=== PATIENT | male | born 1955 | race Caucasian/White ===

== ENCOUNTER 2016-09-09 21:56 | Inpatient (IN) | payer OTHER ==
[~2016-09-09] VITALS: Ht 175.3 cm; Wt 83.0 kg
[~2016-09-09 21:56] MED LIST: ACETAMINOPHEN500 MG PO; ACID CONTROL20 MG PO; ADVAIR 250/501 DISK IH; ADVAIR 500/501 DISK IH; AERONEB GO NEB1 EACH MC; AGGRENOX1 CAPSULE PO; ALENDRONATE SOD70 MG PO; ALIGN4 MG PO; AMITIZA24 MICROGR PO; AMLODIPINE BESY10 MG PO; ANALGESIC325 M1 PO; ASPIR-LOW81 MG PO; ASPIRIN81 M2 PO; ATORVASTATIN CA40 MG PO; AZITHROMYCIN500 M1 PO; BENADRYL25 MG PO; BRILINTA90 MG PO; BUPROPION HCL150 M1 PO; CARAFATE1 GM PO; CLONAZEPAM0.5 MG PO; CLOPIDOGREL75 MG PO; COMBIVENT RESPIM4 GM IH; DAILY VALUE1 EACH PO; DELTASONE20 M1 PO; DICYCLOMINE HCL10 MG PO; DONNATAL1 TABLET PO; DOXYCYCLINE HY100 MG PO; DUONEB 2.5-0.5 M3 ML AEROSOL; DUONEB 2.5-0.5 M3 ML IH; ELAVIL10 MG PO; ELIQUIS5 MG PO; FLAGYL500 MG PO; FLONASE ALLERG9.9 ML BOTH NARES; FLONASE16 G1 BOTH NARES; FOLIC ACID1 MG PO; FOSAMAX70 MG PO; GAS RELIEF125 MG PO; HYDROCHLOROTHIA25 MG PO; IMIPRAMINE HCL25 MG PO; KEFLEX500 MG PO; KENALOG,ARISTOC15 G3 TP; LEVAQUIN500 MG PO; LEVAQUIN750 MG PO; LEVOFLOXACIN500 MG PO; LIPITOR40 MG PO; LISINOPRIL2.5 MG PO; LO-DOSE ASPIRIN81 M1 PO; MELOXICAM15 MG PO; METOPROLOL SUC100 MG PO; METOPROLOL SUCC25 MG PO; METOPROLOL SUCC50 MG PO; METRONIDAZOLE500 MG PO; MIRALAX17 GM PO; MIRALAX255 GM PO; MONTELUKAST SOD10 MG PO; MORPHINE SULFAT15 MG PO; MULTIVITAMIN1 EAC2 PO; NITROSTAT0.4 MG SL; NORCO 5/3251 TABLET PO; NORVASC5 MG PO; ONE DAILY FOR1 EAC2 PO; OXAYDO5 MG PO; PANTOPRAZOLE SO40 MG PO; PERCOCET 5/31 TABLET PO; PHENERGAN-CODE120 ML PO; PLAVIX75 MG PO; PREDNISONE10 M1 PO; PREDNISONE10 MG PO; PREDNISONE20 MG PO; PREDNISONE5 MG PO; PREDNISONE50 MG PO; PROAIR HFA8.5 GM IH; PROTONIX40 MG PO; PROVENTIL,2.5 MG/0.5 AEROSOL; PROVENTIL,2.5 MG/3 M IH; SALINE NASAL SP45 ML BOTH NARES; SIMETHICONE125 M1 PO; SODIUM CHLORIDE1 G1 PO; SPIRIVA1 INHALATI IH; SUCRALFATE1 GM PO; THIAMINE HCL50 MG PO; TOPROL XL100 MG PO; TOPROL XL50 MG PO; TRAMADOL HCL50 MG PO; TYLENOL REGULA325 MG PO; ULTRAM50 MG PO; VITAMIN D-32000 UNI2 PO; VITAMIN D2000 UNI1 PO; ZITHROMAX Z-PA250 MG PO; ZITHROMAX500 MG PO; [UNRECOGNIZED DRUG - OTHER] PO
[2016-09-09 22:25] LABS: HEMATOCRIT 40.5 % (38.0-50.0); MCH 32.6 PG (29.0-34.0); MCHC 33.8 G/DL (30.0-36.0); MCV 96.4 FL (86-99); MEAN PLAT.VOLUME 8.6 uM^3 (9.0-12.4); RBC DIS.WIDTH-CV 12.8 % (11.8-14.6); RBC DIS.WIDTH-SD 45.4 % (39-53)
[2016-09-09 22:44] LABS: CHLORIDE 102 mEq/L (99-109); POTASSIUM 3.6 mEq/L (3.7-5.4); SODIUM 136 mEq/L (136-147)
[2016-09-09 22:45] LABS: GLUCOSE 82 mg/dL (70-99)
[2016-09-09 22:47] LABS: ANION GAP 13 MEQ/L (2-14)
[2016-09-09 22:49] LABS: GFR ESTIMATE (CALCULATED) > 59 mL/min/
[2016-09-09 22:50] LABS: UREA NITROGEN (BUN) 7 mg/dL (9-23)
[2016-09-09 23:29] LABS: TOTAL BILIRUBIN 0.3 mg/dL (0.0-1.0)
[2016-09-09 23:30] LABS: ALKALINE PHOSPHATASE 48 IU/L (3-129)
[2016-09-09 23:33] LABS: DIRECT BILIRUBIN 0.1 mg/dL (0.0-0.3)
[2016-09-09 23:34] LABS: LIPASE 30 U/L (1.0-51.0)
[2016-09-09 23:36] LABS: TROP-I INTERPRETATION NEGATIVE; TROPONIN-I < 0.01 ng/mL (0.0-0.30)
[2016-09-10 00:02] LABS: PLATELET COUNT ND K/uL (156-360)
[2016-09-10] MEDS ORDERED: OXAYDO7.5 MG PO (00:33)
[2016-09-10] MEDS ORDERED: PREDNISONE5 MG PO (00:35)
[2016-09-10] MEDS ORDERED: VITAMIN D31000 UNIT PO (00:35)
[2016-09-10] MEDS ORDERED: LINZESS290 MCG PO (00:36)
[2016-09-10] MEDS ORDERED: B COMPLETE1 EACH PO (00:37)
[2016-09-10] MEDS ORDERED: CO Q-1010 MG PO (00:37)
[2016-09-10] MEDS ORDERED: VITAMIN E100 UNIT PO (00:37)
[2016-09-10] MEDS ORDERED: MS CONTIN,ORAMO15 M1 PO (00:37)
[2016-09-10 04:53] VITALS: BP 154/85
[2016-09-10 07:49] VITALS: BP 159/100
[2016-09-10 09:26] LABS: MCH 31.7 PG (29.0-34.0); MCHC 33.1 G/DL (30.0-36.0); MCV 95.8 FL (86-99); MEAN PLAT.VOLUME 8.6 uM^3 (9.0-12.4); RBC DIS.WIDTH-SD 45.5 % (39-53); RED BLOOD COUNT 4.07 M/uL (4.00-5.50)
[2016-09-10 09:58] LABS: ANION GAP 8 MEQ/L (2-14); CHLORIDE 100 MEQ/L (99-109); GFR ESTIMATE (CALCULATED) > 59 mL/min/; POTASSIUM 4.2 MEQ/L (3.7-5.4); SAMPLE HEMOLYSIS CHECK 0; SAMPLE ICTERIC CHECK 0; SAMPLE LIPEMIA CHECK 0; SODIUM 136 MEQ/L (136-147); UREA NITROGEN (BUN) 8 mg/dL (9-23)
[2016-09-10 10:00] LABS: GLUCOSE 129 mg/dL (70-99)
[2016-09-10 10:03] LABS: ADD MIUA? NO; BILIRUBIN NEGATIVE; BLOOD NEGATIVE; COLOR YELLOW ((YELLOW)); GLUCOSE (STRIP) 50; KETONES NEGATIVE; LEUKOCYTES NEGATIVE; NITRITE NEGATIVE; PROTEIN (STRIP) NEGATIVE; SPECIFIC GRAVITY 1.013 (1.000-1.030); UCUL ADDED? NO; UROBILINOGEN 0.2 MG/DL (0.2-1.0)
[2016-09-10 10:31] LABS: PLATELET COUNT 256 K/uL (156-360)
[2016-09-10 12:07] VITALS: BP 125/84
[2016-09-10 15:47] VITALS: BP 124/78
[2016-09-10 20:57] VITALS: BP 138/96
[2016-09-11] VITALS (8 sets, daily range): BP systolic 113–145; BP diastolic 74–90
[2016-09-11 06:49] LABS: HEMATOCRIT 38.4 % (38.0-50.0); MCH 32.2 PG (29.0-34.0); MCHC 33.3 G/DL (30.0-36.0); MCV 96.5 FL (86-99); MEAN PLAT.VOLUME 8.7 uM^3 (9.0-12.4); PLATELET COUNT 247 K/uL (156-360); RBC DIS.WIDTH-CV 12.7 % (11.8-14.6); RBC DIS.WIDTH-SD 45.1 % (39-53); RED BLOOD COUNT 3.98 M/uL (4.00-5.50)
[2016-09-11 06:51] LABS: WHITE BLOOD COUNT 12.4 K/uL (4.1-10.2)
[2016-09-11 08:18] LABS: ANION GAP 5 MEQ/L (2-14); CHLORIDE 99 MEQ/L (99-109); GFR ESTIMATE (CALCULATED) > 59 mL/min/; GLUCOSE 126 mg/dL (70-99); POTASSIUM 3.9 MEQ/L (3.7-5.4); SAMPLE HEMOLYSIS CHECK 0; SAMPLE ICTERIC CHECK 0; SAMPLE LIPEMIA CHECK 0; SODIUM 135 MEQ/L (136-147); UREA NITROGEN (BUN) 7 mg/dL (9-23)
[2016-09-12 04:51] VITALS: BP 135/80
[2016-09-12 08:00] VITALS: BP 154/78
[2016-09-12 09:34] LABS: BASE EXCESS 5.6 mEq/L (-3 to +3); BICARBONATE 29.8 mEq/L (22-26); CARBOXY HGB 2.4 % (0-5); METHEMOGLOBIN 1.5 % (0-1.5); PCO2 41 mm Hg (35-45); PO2 61 mm Hg (80-100); pH 7.47 (7.35-7.45)
[2016-09-12 09:35] LABS: COMMENTS - BLOOD GASES A+C+; DEVICE NC; O2 FLOW 2 L/MIN; SITE LR; TOTAL RESP RATE 18 resp/min
[2016-09-12 12:18] VITALS: BP 148/80
[2016-09-12 15:45] VITALS: BP 120/77
[2016-09-12 18:16] VITALS: BP 166/96
[2016-09-12 20:48] VITALS: BP 149/91
[2016-09-13 01:03] VITALS: BP 139/83
[2016-09-13 05:00] VITALS: BP 154/77
[2016-09-13 06:09] LABS: EOSINOPHIL (%) 0 % (0-5); HEMATOCRIT 38.5 % (38.0-50.0); IMMATURE GRANULOCYTE (%) 0.7 % (0.0-0.7); IMMATURE GRANULOCYTE COUNT 0.1 K/uL; INSTRUMENT ABS NEUTROPHIL CT 10.4 K/uL; LYMPHOCYTE COUNT 0.9 K/uL (1.0-2.8); MCH 31.9 PG (29.0-34.0); MCHC 32.2 G/DL (30.0-36.0); MEAN PLAT.VOLUME 8.6 uM^3 (9.0-12.4); MONOCYTE COUNT 1.4 K/uL (0-0.8); NEUTROPHIL COUNT 10.4 K/uL (1.8-6.4); PLATELET COUNT 254 K/uL (156-360); RBC DIS.WIDTH-CV 12.7 % (11.8-14.6); RBC DIS.WIDTH-SD 45.9 % (39-53); RED BLOOD COUNT 3.89 M/uL (4.00-5.50); WHITE BLOOD COUNT 12.9 K/uL (4.1-10.2)
[2016-09-13 06:40] LABS: ANION GAP 7 MEQ/L (2-14); CHLORIDE 100 MEQ/L (99-109); GFR ESTIMATE (CALCULATED) > 59 mL/min/; MAGNESIUM 2.1 mg/dl (1.3-2.7); POTASSIUM 4.1 MEQ/L (3.7-5.4); SAMPLE HEMOLYSIS CHECK 0; SAMPLE ICTERIC CHECK 0; SAMPLE LIPEMIA CHECK 0; SODIUM 136 MEQ/L (136-147); UREA NITROGEN (BUN) 13 mg/dL (9-23)
[2016-09-13 06:42] LABS: GLUCOSE 85 mg/dL (70-99)
[2016-09-13 07:50] VITALS: BP 164/69
[2016-09-13 11:43] VITALS: BP 131/86
[2016-09-13 15:50] VITALS: BP 107/81
[2016-09-13 20:20] VITALS: BP 121/83
[2016-09-14] VITALS (7 sets, daily range): BP systolic 94–160; BP diastolic 68–98
[2016-09-14 06:59] LABS: EOSINOPHIL (%) 0 % (0-5); HEMATOCRIT 39.9 % (38.0-50.0); IMMATURE GRANULOCYTE (%) 1.1 % (0.0-0.7); IMMATURE GRANULOCYTE COUNT 0.1 K/uL; INSTRUMENT ABS NEUTROPHIL CT 8.6 K/uL; LYMPHOCYTE COUNT 0.5 K/uL (1.0-2.8); MCH 32.2 PG (29.0-34.0); MCHC 33.1 G/DL (30.0-36.0); MCV 97.3 FL (86-99); MEAN PLAT.VOLUME 8.8 uM^3 (9.0-12.4); MONOCYTE (%) 8.9 % (3-12); MONOCYTE COUNT 0.9 K/uL (0-0.8); NEUTROPHIL (%) 85.4 % (45-76); NEUTROPHIL COUNT 8.6 K/uL (1.8-6.4); PLATELET COUNT 239 K/uL (156-360); RBC DIS.WIDTH-CV 12.4 % (11.8-14.6); RBC DIS.WIDTH-SD 44.6 % (39-53); WHITE BLOOD COUNT 10.1 K/uL (4.1-10.2)
[2016-09-14 07:24] LABS: ANION GAP 6 MEQ/L (2-14); CHLORIDE 97 MEQ/L (99-109); GFR ESTIMATE (CALCULATED) > 59 mL/min/; GLUCOSE 103 mg/dL (70-99); POTASSIUM 4.4 MEQ/L (3.7-5.4); SAMPLE HEMOLYSIS CHECK 0; SAMPLE ICTERIC CHECK 0; SAMPLE LIPEMIA CHECK 0; SODIUM 133 MEQ/L (136-147); UREA NITROGEN (BUN) 14 mg/dL (9-23)
[2016-09-15 04:00] VITALS: BP 128/73
[2016-09-15 06:15] LABS: EOSINOPHIL (%) 0 % (0-5); HEMATOCRIT 41.2 % (38.0-50.0); IMMATURE GRANULOCYTE (%) 1.1 % (0.0-0.7); IMMATURE GRANULOCYTE COUNT 0.1 K/uL; INSTRUMENT ABS NEUTROPHIL CT 10.5 K/uL; LYMPHOCYTE COUNT 0.4 K/uL (1.0-2.8); MCH 32.1 PG (29.0-34.0); MCV 97.2 FL (86-99); MEAN PLAT.VOLUME 8.6 uM^3 (9.0-12.4); MONOCYTE (%) 7.4 % (3-12); MONOCYTE COUNT 0.9 K/uL (0-0.8); NEUTROPHIL (%) 87.6 % (45-76); NEUTROPHIL COUNT 10.5 K/uL (1.8-6.4); PLATELET COUNT 277 K/uL (156-360); RBC DIS.WIDTH-CV 12.4 % (11.8-14.6); RBC DIS.WIDTH-SD 44.6 % (39-53); RED BLOOD COUNT 4.24 M/uL (4.00-5.50); WHITE BLOOD COUNT 11.9 K/uL (4.1-10.2)
[2016-09-15 06:43] LABS: ANION GAP 8 MEQ/L (2-14); CHLORIDE 98 MEQ/L (99-109); GFR ESTIMATE (CALCULATED) > 59 mL/min/; GLUCOSE 98 mg/dL (70-99); POTASSIUM 4.4 MEQ/L (3.7-5.4); SAMPLE HEMOLYSIS CHECK 0; SAMPLE ICTERIC CHECK 0; SAMPLE LIPEMIA CHECK 0; SODIUM 135 MEQ/L (136-147); UREA NITROGEN (BUN) 16 mg/dL (9-23)
[2016-09-15 08:13] VITALS: BP 148/83
[2016-09-15 11:56] VITALS: BP 127/76
[2016-09-15 15:41] VITALS: BP 119/74
[2016-09-15 20:00] VITALS: BP 126/81
[2016-09-16 01:04] VITALS: BP 154/76
[2016-09-16 05:02] VITALS: BP 145/74
[2016-09-16 08:39] VITALS: BP 170/95
[2016-09-16 12:17] VITALS: BP 112/57
[2016-09-16 12:22] VITALS: BP 106/68
[2016-09-16] MEDS ORDERED: OMEPRAZOLE20 MG PO (13:43)
[2016-09-16] MEDS ORDERED: LEVOFLOXACIN750 MG PO (15:34)
[2016-09-16] MEDS ORDERED: NICOTINE PATCH1 EAC1 TD (15:35)
[2016-09-16 15:53] VITALS: BP 132/78
[2016-09-16] MEDS ORDERED: PROTONIX40 MG PO (16:20)
== END 2016-09-16 16:40 | disposition home health service (06) | DRG 190 ==
LOC: EME 21:56 → EDOF 09-10 02:57 → 5WEST 09-10 04:21 → 4SOUTH 09-10 12:21 → 5WEST 09-10 12:21 → 4SOUTH 09-12 18:00
PROVIDERS: Hospitalist; Internal Medicine; Physician Assistant; Student in an Organized Health Care Education/Training Program
DX: J44.1 Chronic obstructive pulmonary disease with (acute) exacerbation (principal); J96.00 Acute respiratory failure, unspecified whether with hypoxia or hypercapnia; E87.1 Hypo-osmolality and hyponatremia; K56.60 Unspecified intestinal obstruction; I25.10 Atherosclerotic heart disease of native coronary artery without angina pectoris; Z95.5 Presence of coronary angioplasty implant and graft; F17.210 Nicotine dependence, cigarettes, uncomplicated; I10 Essential (primary) hypertension; E78.5 Hyperlipidemia, unspecified; I48.0 Paroxysmal atrial fibrillation; Z86.73 Personal history of transient ischemic attack (TIA), and cerebral infarction without residual deficits; E66.9 Obesity, unspecified; Z68.27 Body mass index [BMI] 27.0-27.9, adult; G47.33 Obstructive sleep apnea (adult) (pediatric); F10.20 Alcohol dependence, uncomplicated
CPT/HCPCS: 36600; 71010; 71020; 74020; 80048; 80076; 81003; 82803; 83690; 83735; 83880; 84484; 85025; 85027; 85379; 87070; 87205; 93005; 94640; 94640 76; 94760; 94799; 99202; 99281; 99285; J2920; J2930; J7512

== ENCOUNTER 2016-12-12 08:57 | Emergency (ER) | payer OTHER ==
[~2016-12-12] VITALS: Ht 175.3 cm; Wt 89.3 kg
[~2016-12-12 08:57] MED LIST changes: +B COMPLETE1 EACH PO; +CO Q-1010 MG PO; +LEVOFLOXACIN750 MG PO; +LINZESS290 MCG PO; +MS CONTIN,ORAMO15 M1 PO; +NICOTINE PATCH1 EAC1 TD; +OMEPRAZOLE20 MG PO; +OXAYDO7.5 MG PO; +VITAMIN D31000 UNIT PO; +VITAMIN E100 UNIT PO
[2016-12-12 10:39] LABS: EOSINOPHIL (%) 0.2 % (0-5); HEMATOCRIT 38.3 % (38.0-50.0); IMMATURE GRANULOCYTE (%) 1.2 % (0.0-0.7); IMMATURE GRANULOCYTE COUNT 0.2 K/uL; INSTRUMENT ABS NEUTROPHIL CT 11.9 K/uL; LYMPHOCYTE COUNT 0.7 K/uL (1.0-2.8); MCHC 33.9 G/DL (30.0-36.0); MCV 91.4 FL (86-99); MEAN PLAT.VOLUME 8.5 uM^3 (9.0-12.4); MONOCYTE (%) 6.2 % (3-12); MONOCYTE COUNT 0.9 K/uL (0-0.8); NEUTROPHIL (%) 87.2 % (45-76); NEUTROPHIL COUNT 11.9 K/uL (1.8-6.4); PLATELET COUNT 268 K/uL (156-360); RBC DIS.WIDTH-CV 14.5 % (11.8-14.6); RBC DIS.WIDTH-SD 48.3 % (39-53); RED BLOOD COUNT 4.19 M/uL (4.00-5.50); WHITE BLOOD COUNT 13.7 K/uL (4.1-10.2)
[2016-12-12 10:49] LABS: CHLORIDE 102 mEq/L (99-109); POTASSIUM 3.1 mEq/L (3.7-5.4); PROTHROMBIN TIME 10.6 (9.2-11.2); SODIUM 137 mEq/L (136-147)
[2016-12-12 10:51] LABS: GLUCOSE 122 mg/dL (70-99)
[2016-12-12 10:53] LABS: ANION GAP 10 MEQ/L (2-14)
[2016-12-12 10:55] LABS: GFR ESTIMATE (CALCULATED) > 59 mL/min/
[2016-12-12 10:56] LABS: UREA NITROGEN (BUN) 6 mg/dL (9-23)
[2016-12-12 11:01] LABS: TROP-I INTERPRETATION NEGATIVE; TROPONIN-I 0.01 ng/mL (0.0-0.30)
[2016-12-12 14:42] VITALS: BP 136/90
== END 2016-12-12 14:49 | disposition home or self-care (01) ==
LOC: EME 08:57
PROVIDERS: Emergency Medicine
PROC: 3E0234Z Introduction of Serum, Toxoid and Vaccine into Muscle, Percutaneous Approach (ICD-10-PCS; principal; 2016-12-12)
DX: L03.114 Cellulitis of left upper limb (principal); R60.0 Localized edema; J44.9 Chronic obstructive pulmonary disease, unspecified; S50.812A Abrasion of left forearm, initial encounter; W54.1XXA Struck by dog, initial encounter; Z79.01 Long term (current) use of anticoagulants; Z79.02 Long term (current) use of antithrombotics/antiplatelets; Z79.52 Long term (current) use of systemic steroids; Z23 Encounter for immunization; J45.909 Unspecified asthma, uncomplicated; I10 Essential (primary) hypertension; Z95.5 Presence of coronary angioplasty implant and graft; F17.200 Nicotine dependence, unspecified, uncomplicated; F10.20 Alcohol dependence, uncomplicated
CPT/HCPCS: 71010; 73130; 80048; 83880; 84484; 85025; 85610; 93005; 99281; 99285; J0696; J7050

== ENCOUNTER 2017-02-27 21:34 | Inpatient (IN) | payer OTHER ==
[~2017-02-27] VITALS: Ht 172.7 cm; Wt 79.0 kg
[2017-02-27 22:34] LABS: BASE EXCESS -3.4 mEq/L (-3 to +3); CARBOXY HGB 2.8 % (0-5); METHEMOGLOBIN 1.2 % (0-1.5); PO2 53 mm Hg (80-100); pH 7.45 (7.35-7.45)
[2017-02-27 22:35] LABS: BICARBONATE 19.5 mEq/L (22-26); COMMENTS - BLOOD GASES A+C+; DEVICE NC; O2 FLOW 4 L/MIN; PCO2 28 mm Hg (35-45); SITE RR; TOTAL RESP RATE 30 resp/min
[2017-02-27 22:37] LABS: EOSINOPHIL (%) 0.1 % (0-5); HEMATOCRIT 35.5 % (38.0-50.0); IMMATURE GRANULOCYTE (%) 1.4 % (0.0-0.7); IMMATURE GRANULOCYTE COUNT 0.2 K/uL; INSTRUMENT ABS NEUTROPHIL CT 14.8 K/uL; LYMPHOCYTE COUNT 0.6 K/uL (1.0-2.8); MCH 29.9 PG (29.0-34.0); MCHC 34.1 G/DL (30.0-36.0); MCV 87.7 FL (86-99); MEAN PLAT.VOLUME 9.2 uM^3 (9.0-12.4); MONOCYTE COUNT 1.4 K/uL (0-0.8); NEUTROPHIL (%) 86.9 % (45-76); NEUTROPHIL COUNT 14.8 K/uL (1.8-6.4); PLATELET COUNT 260 K/uL (156-360); RBC DIS.WIDTH-CV 13.8 % (11.8-14.6); RBC DIS.WIDTH-SD 44.7 % (39-53); RED BLOOD COUNT 4.05 M/uL (4.00-5.50); WHITE BLOOD COUNT 17.1 K/uL (4.1-10.2)
[2017-02-27 22:58] LABS: TROP-I INTERPRETATION NEGATIVE; TROPONIN-I 0.24 ng/mL (0.0-0.30)
[2017-02-27 23:06] LABS: CHLORIDE 88 mEq/L (99-109); SODIUM 126 mEq/L (136-147)
[2017-02-27 23:08] LABS: GLUCOSE 119 mg/dL (70-99)
[2017-02-27 23:09] LABS: ANION GAP 21 MEQ/L (2-14)
[2017-02-27 23:10] LABS: TOTAL BILIRUBIN 1.2 mg/dL (0.0-1.0)
[2017-02-27 23:12] LABS: ALKALINE PHOSPHATASE 103 IU/L (3-129); GFR ESTIMATE (CALCULATED) > 59 mL/min/
[2017-02-27 23:13] LABS: UREA NITROGEN (BUN) 5 mg/dL (9-23)
[2017-02-28] VITALS (28 sets, daily range): BP systolic 0–140; BP diastolic 0–100
[2017-02-28 00:03] LABS: INTER. NORMALIZED RATIO 1.6; PROTHROMBIN TIME 17.8 SEC (10.2-12.9)
[2017-02-28 00:06] LABS: PTT 33.2 SEC (25-37)
[2017-02-28 01:51] LABS: BASE EXCESS -3.7 mEq/L (-3 to +3); BICARBONATE 23.8 mEq/L (22-26); CARBOXY HGB 1.7 % (0-5); COMMENTS - BLOOD GASES A+C+; DEVICE NC; METHEMOGLOBIN 1.2 % (0-1.5); O2 FLOW 5 L/MIN; PCO2 53 mm Hg (35-45); PO2 < 24 mm Hg (80-100); SITE RR; pH 7.26 (7.35-7.45)
[2017-02-28 01:52] LABS: TOTAL RESP RATE 30 resp/min
[2017-02-28 02:49] LABS: ADD MIUA? YES; BILIRUBIN NEGATIVE; BLOOD LARGE; COLOR YELLOW ((YELLOW)); GLUCOSE (STRIP) NEGATIVE; KETONES 5; LEUKOCYTES NEGATIVE; NITRITE NEGATIVE; PROTEIN (STRIP) NEGATIVE; SPECIFIC GRAVITY 1.023 (1.000-1.030); UROBILINOGEN 0.2 MG/DL (0.2-1.0)
[2017-02-28 03:08] LABS: RED BLOOD CELLS TNTC /HPF (0-5)
[2017-02-28 03:09] LABS: BACTERIA RARE /HPF; CASTS NONE SEEN /LPF; CRYSTALS NONE SEEN; EPITHELIAL CELLS RARE /HPF; MUCUS NONE SEEN /LPF; UCUL ADDED? YES; WHITE BLOOD CELLS 0-5 /HPF (0-5)
[2017-02-28 06:06] LABS: METH RESISTANT S AUREUS PCR ND (NEGATIVE)
[2017-02-28 09:48] LABS: METH RESISTANT S AUREUS PCR NEGATIVE (NEGATIVE)
[2017-02-28 09:49] LABS: PROBE CHECK PASS; SPECIMEN PROCESSING CONTROL PASS
[2017-02-28] MEDS ORDERED: COMBIVENT RESPIM4 GM IH (11:20)
[2017-02-28] MEDS ORDERED: SPIRIVA RESPIMAT4 GM IH (11:20)
[2017-02-28] MEDS ORDERED: POTASSIUM CITR10 MEQ PO (11:21)
[2017-02-28] MEDS ORDERED: OXYCODONE HCL10 MG PO (11:21)
[2017-02-28] MEDS ORDERED: ELIQUIS5 MG PO (11:22)
[2017-02-28] MEDS ORDERED: METOPROLOL SUCC50 MG PO (11:22)
[2017-02-28] MEDS ORDERED: LASIX40 MG PO (11:22)
[2017-02-28] MEDS ORDERED: ATORVASTATIN CA40 MG PO (11:23)
[2017-02-28] MEDS ORDERED: SODIUM CHLORIDE1 G1 PO (11:23)
[2017-02-28] MEDS ORDERED: GABAPENTIN100 MG PO (11:24)
[2017-02-28] MEDS ORDERED: BENTYL10 MG PO (11:24)
[2017-02-28] MEDS ORDERED: PLAVIX75 MG PO (11:25)
[2017-02-28] MEDS ORDERED: LINZESS290 MCG PO (11:28)
[2017-02-28] MEDS ORDERED: PANTOPRAZOLE SO40 MG PO (11:29)
[2017-02-28] MEDS ORDERED: ALENDRONATE SOD70 MG PO (11:36)
[2017-02-28] MEDS ORDERED: DUONEB 2.5-0.5 M3 ML AEROSOL (11:36)
[2017-02-28] MEDS ORDERED: MS CONTIN,ORAMO15 M1 PO (11:38)
[2017-02-28 14:30] LABS: DEVICE VENT; FI02 100 %; MECHANICAL RATE 16 resp/min; MODE A/C; PEEP 5 CM/H20; TIDAL VOLUME 500 ML; TOTAL RESP RATE 16 resp/min
[2017-02-28 14:31] LABS: BICARBONATE 20.2 mEq/L (22-26); PCO2 42 mm Hg (35-45); PO2 235 mm Hg (80-100); pH 7.29 (7.35-7.45)
[2017-03-01] VITALS (24 sets, daily range): BP systolic 92–123; BP diastolic 67–97
[2017-03-01 03:53] LABS: EOSINOPHIL (%) 0 % (0-5); HEMATOCRIT 29.8 % (38.0-50.0); IMMATURE GRANULOCYTE (%) 1.7 % (0.0-0.7); IMMATURE GRANULOCYTE COUNT 0.3 K/uL; MCH 30.4 PG (29.0-34.0); MCHC 35.2 G/DL (30.0-36.0); MCV 86.4 FL (86-99); MEAN PLAT.VOLUME 9.5 uM^3 (9.0-12.4); MONOCYTE (%) 6.8 % (3-12); MONOCYTE COUNT 1.3 K/uL (0-0.8); NEUTROPHIL (%) 86.3 % (45-76); PLATELET COUNT 248 K/uL (156-360); RBC DIS.WIDTH-CV 13.9 % (11.8-14.6); RBC DIS.WIDTH-SD 43.4 % (39-53); RED BLOOD COUNT 3.45 M/uL (4.00-5.50); WHITE BLOOD COUNT 19.7 K/uL (4.1-10.2)
[2017-03-01 04:08] LABS: GFR ESTIMATE (CALCULATED) > 59 mL/min/
[2017-03-01 04:19] LABS: POTASSIUM 2.8 mEq/L (3.7-5.4)
[2017-03-01 04:27] LABS: SODIUM 130 mEq/L (136-147)
[2017-03-01 04:28] LABS: MAGNESIUM 1.3 mg/dL (1.3-2.7)
[2017-03-01 04:33] LABS: GLUCOSE 140 mg/dL (70-99)
[2017-03-01 04:35] LABS: ANION GAP 12 MEQ/L (2-14)
[2017-03-01 04:38] LABS: UREA NITROGEN (BUN) 5 mg/dL (9-23)
[2017-03-01 04:40] LABS: CHLORIDE 98 mEq/L (99-109)
[2017-03-02] VITALS (23 sets, daily range): BP systolic 77–118; BP diastolic 55–92
[2017-03-02 07:09] LABS: ANION GAP 8 MEQ/L (2-14); CHLORIDE 101 MEQ/L (99-109); GFR ESTIMATE (CALCULATED) > 59 mL/min/; GLUCOSE 147 mg/dL (70-99); MAGNESIUM 2.1 mg/dl (1.3-2.7); SAMPLE HEMOLYSIS CHECK 0; SAMPLE ICTERIC CHECK 0; SAMPLE LIPEMIA CHECK 0; SODIUM 132 MEQ/L (136-147); UREA NITROGEN (BUN) 7 mg/dL (9-23)
[2017-03-02 07:15] LABS: POTASSIUM 3.5 MEQ/L (3.7-5.4)
[2017-03-02 10:40] LABS: BASE EXCESS 0.1 mEq/L (-3 to +3); BICARBONATE 23.1 mEq/L (22-26); CARBOXY HGB 1.4 % (0-5); COMMENTS - BLOOD GASES C+; METHEMOGLOBIN 1.5 % (0-1.5); PCO2 31 mm Hg (35-45); PO2 63 mm Hg (80-100); SITE RR; pH 7.48 (7.35-7.45)
[2017-03-02 10:41] LABS: DEVICE VENT; MODE ACVC+
[2017-03-02 10:42] LABS: FI02 40 %; INSPIRATION TIME 0.7 seconds; MECHANICAL RATE 16 resp/min; PEEP 5 CM/H20; TIDAL VOLUME 500 ML; TOTAL RESP RATE 24 resp/min
[2017-03-03] VITALS (22 sets, daily range): BP systolic 84–125; BP diastolic 67–91
[2017-03-03 05:02] LABS: BASE EXCESS -0.1 mEq/L (-3 to +3); BICARBONATE 23.6 mEq/L (22-26); CARBOXY HGB 1.1 % (0-5); COMMENTS - BLOOD GASES C+A+; DEVICE VENT; FI02 50 %; INSPIRATION TIME 0.7 seconds; MECHANICAL RATE 16 resp/min; METHEMOGLOBIN 1.6 % (0-1.5); MODE AC; PCO2 34 mm Hg (35-45); PEEP 10 CM/H20; PO2 111 mm Hg (80-100); SITE RR; TIDAL VOLUME 500 ML; TOTAL RESP RATE 20 resp/min; pH 7.45 (7.35-7.45)
[2017-03-03 05:30] LABS: HEMATOCRIT 28.3 % (38.0-50.0); MCH 29.4 PG (29.0-34.0); MCHC 33.2 G/DL (30.0-36.0); MCV 88.4 FL (86-99); PLATELET COUNT 258 K/uL (156-360); RBC DIS.WIDTH-CV 14.6 % (11.8-14.6); RBC DIS.WIDTH-SD 47.2 % (39-53); WHITE BLOOD COUNT 12.1 K/uL (4.1-10.2)
[2017-03-03 06:04] LABS: EOSINOPHIL (%) 0 % (0-5); HEMATOLOGY COMMENT 1 SN; IMMATURE GRANULOCYTE (%) 2.9 % (0.0-0.7); IMMATURE GRANULOCYTE COUNT 0.4 K/uL; MONOCYTE (%) 5.8 % (3-12); MONOCYTE COUNT 0.7 K/uL (0-0.8); NEUTROPHIL (%) 82.9 % (45-76)
[2017-03-03 06:06] LABS: ANION GAP 6 MEQ/L (2-14); CHLORIDE 103 MEQ/L (99-109); GFR ESTIMATE (CALCULATED) > 59 mL/min/; GLUCOSE 127 mg/dL (70-99); MAGNESIUM 2.2 mg/dl (1.3-2.7); POTASSIUM 3.4 MEQ/L (3.7-5.4); SAMPLE HEMOLYSIS CHECK 0; SAMPLE ICTERIC CHECK 0; SAMPLE LIPEMIA CHECK 0; SODIUM 132 MEQ/L (136-147); UREA NITROGEN (BUN) 8 mg/dL (9-23)
[2017-03-03 06:56] LABS: C DIFF TOXIN NEGATIVE (NEGATIVE)
[2017-03-03 06:57] LABS: PROBE CHECK PASS; SPECIMEN PROCESSING CONTROL PASS
[2017-03-04] VITALS (20 sets, daily range): BP systolic 81–112; BP diastolic 48–77
[2017-03-04 05:48] LABS: HEMATOCRIT 26.5 % (38.0-50.0); MCH 31.4 PG (29.0-34.0); MCHC 34.3 G/DL (30.0-36.0); MCV 91.4 FL (86-99); MEAN PLAT.VOLUME 10.3 uM^3 (9.0-12.4); PLATELET COUNT 238 K/uL (156-360); RBC DIS.WIDTH-CV 15.3 % (11.8-14.6); RBC DIS.WIDTH-SD 51.2 % (39-53); WHITE BLOOD COUNT 12.5 K/uL (4.1-10.2)
[2017-03-04 06:21] LABS: ABS NEUTROPHIL COUNT 11.9; ANISOCYTOSIS 2+; BURR CELLS 2+; EOSINOPHIL ABS CT 0; INSTRUMENT ABS NEUTROPHIL CT 10.3 K/uL; LYMPHOCYTES 1.8 % (15.0-45.0); MACROCYTES 2+; MICROCYTOSIS 1+; MYELOCYTES 1.8 %; OVALOCYTES 1+; PLAT.SUFFICIENCY ADEQUATE; POIKILOCYTOSIS 3+; SCHISTOCYTES 1+; SEG.NEUTROPHILS 95.5 % (46.0-76.0); SPHEROCYTES 1+
[2017-03-04 07:15] LABS: ANION GAP 6 MEQ/L (2-14); CHLORIDE 105 MEQ/L (99-109); GFR ESTIMATE (CALCULATED) > 59 mL/min/; GLUCOSE 112 mg/dL (70-99); MAGNESIUM 2.4 mg/dl (1.3-2.7); SAMPLE HEMOLYSIS CHECK 0; SAMPLE ICTERIC CHECK 0; SAMPLE LIPEMIA CHECK 0; SODIUM 134 MEQ/L (136-147); UREA NITROGEN (BUN) 9 mg/dL (9-23)
[2017-03-04 07:16] LABS: POTASSIUM 4.2 MEQ/L (3.7-5.4)
[2017-03-05] VITALS (17 sets, daily range): BP systolic 90–140; BP diastolic 59–92
[2017-03-05 04:35] LABS: CHLORIDE 103 mEq/L (99-109); POTASSIUM 3.4 mEq/L (3.7-5.4); SODIUM 132 mEq/L (136-147)
[2017-03-05 04:37] LABS: GLUCOSE 117 mg/dL (70-99)
[2017-03-05 04:39] LABS: ANION GAP 4 MEQ/L (2-14)
[2017-03-05 04:41] LABS: GFR ESTIMATE (CALCULATED) > 59 mL/min/
[2017-03-05 04:42] LABS: UREA NITROGEN (BUN) 9 mg/dL (9-23)
[2017-03-06] VITALS (20 sets, daily range): BP systolic 0–146; BP diastolic 0–98
[2017-03-06 06:04] LABS: INTER. NORMALIZED RATIO 1.1; PROTHROMBIN TIME 12.4 SEC (10.2-12.9)
[2017-03-06 06:08] LABS: PTT 31.8 SEC (25-37)
[2017-03-06 06:39] LABS: ANION GAP 9 MEQ/L (2-14); CHLORIDE 100 MEQ/L (99-109); GFR ESTIMATE (CALCULATED) > 59 mL/min/; GLUCOSE 103 mg/dL (70-99); POTASSIUM 3.7 MEQ/L (3.7-5.4); SAMPLE HEMOLYSIS CHECK 1; SAMPLE ICTERIC CHECK 0; SAMPLE LIPEMIA CHECK 0; SODIUM 138 MEQ/L (136-147); UREA NITROGEN (BUN) 8 mg/dL (9-23)
[2017-03-07] VITALS (20 sets, daily range): BP systolic 88–148; BP diastolic 57–98
[2017-03-07 06:15] LABS: HEMATOCRIT 31.6 % (38.0-50.0); MCH 29.4 PG (29.0-34.0); MCV 92.1 FL (86-99); MEAN PLAT.VOLUME 9.7 uM^3 (9.0-12.4); NRBC (%) 0.3 /100 WBC (0-0); RBC DIS.WIDTH-CV 15.2 % (11.8-14.6); RBC DIS.WIDTH-SD 51.5 % (39-53); RED BLOOD COUNT 3.43 M/uL (4.00-5.50); WHITE BLOOD COUNT 13.9 K/uL (4.1-10.2)
[2017-03-07 06:27] LABS: PLATELET COUNT 336 K/uL (156-360)
[2017-03-07 06:33] LABS: ANION GAP 9 MEQ/L (2-14); CHLORIDE 98 MEQ/L (99-109); GFR ESTIMATE (CALCULATED) > 59 mL/min/; GLUCOSE 118 mg/dL (70-99); SAMPLE HEMOLYSIS CHECK 0; SAMPLE ICTERIC CHECK 0; SAMPLE LIPEMIA CHECK 0; SODIUM 142 MEQ/L (136-147); UREA NITROGEN (BUN) 5 mg/dL (9-23)
[2017-03-07 06:36] LABS: POTASSIUM 2.8 MEQ/L (3.7-5.4)
[2017-03-07 06:49] LABS: ABS NEUTROPHIL COUNT 11.6; ANISOCYTOSIS 1+; BAND NEUTROPHILS 2.7 % (0-8.0); EOSINOPHIL ABS CT 0; INSTRUMENT ABS NEUTROPHIL CT 10.1 K/uL; MACROCYTES 1+; METAMYELOCYTES 3.5 %; MYELOCYTES 1.8 %; NUCLEATED RBC'S 0.9; PLAT.SUFFICIENCY ADEQUATE; POIKILOCYTOSIS 1+; SEG.NEUTROPHILS 80.5 % (46.0-76.0)
[2017-03-07 18:10] LABS: ANION GAP 10 MEQ/L (2-14); CHLORIDE 99 MEQ/L (99-109); GFR ESTIMATE (CALCULATED) > 59 mL/min/; GLUCOSE 129 mg/dL (70-99); POTASSIUM 3.3 MEQ/L (3.7-5.4); SAMPLE HEMOLYSIS CHECK 0; SAMPLE ICTERIC CHECK 0; SAMPLE LIPEMIA CHECK 0; SODIUM 143 MEQ/L (136-147); UREA NITROGEN (BUN) 5 mg/dL (9-23)
[2017-03-07 20:04] LABS: MAGNESIUM 2.1 mg/dl (1.3-2.7)
[2017-03-07 23:05] LABS: TROP-I INTERPRETATION NEGATIVE; TROPONIN-I 0.13 ng/mL (0.0-0.30)
[2017-03-07 23:07] LABS: CREATINE KINASE 58 IU/L (1-294); TOTAL CK 58 IU/L (1-294)
[2017-03-07 23:12] LABS: CK-MB 1.7 ng/mL (0.0-4.9)
[2017-03-08] VITALS (21 sets, daily range): BP systolic 112–151; BP diastolic 74–100
[2017-03-08 09:30] LABS: MCH 30.6 PG (29.0-34.0); MCHC 31.7 G/DL (30.0-36.0); NRBC (%) 0.2 /100 WBC (0-0); RBC DIS.WIDTH-CV 15.2 % (11.8-14.6); RBC DIS.WIDTH-SD 54.8 % (39-53); WHITE BLOOD COUNT 12.7 K/uL (4.1-10.2)
[2017-03-08 09:35] LABS: MCV 96.8 FL (86-99)
[2017-03-08 09:45] LABS: ABS NEUTROPHIL COUNT 10.9; ANION GAP 7 MEQ/L (2-14); ANISOCYTOSIS 1+; BURR CELLS 1+; CHLORIDE 105 MEQ/L (99-109); EOSINOPHIL ABS CT 0; GFR ESTIMATE (CALCULATED) > 59 mL/min/; HYPOCHROMASIA 1+; LYMPHOCYTES 6.8 % (15.0-45.0); MACROCYTES 1+; MAGNESIUM 2.2 mg/dl (1.3-2.7); MYELOCYTES 0.9 %; PLAT.SUFFICIENCY ADEQUATE; PLATELET CLUMPS PRESENT - PLATELET COUNT APPEARS ADQ.; PLATELET COUNT UNABLE TO REPORT K/uL (156-360); POIKILOCYTOSIS 1+; SAMPLE HEMOLYSIS CHECK 0; SAMPLE ICTERIC CHECK 0; SAMPLE LIPEMIA CHECK 0; SCHISTOCYTES 1+; SEG.NEUTROPHILS 85.5 % (46.0-76.0); SODIUM 146 MEQ/L (136-147); TARGET CELLS 1+; UREA NITROGEN (BUN) 5 mg/dL (9-23)
[2017-03-08 09:48] LABS: GLUCOSE 94 mg/dL (70-99)
[2017-03-09] VITALS (8 sets, daily range): BP systolic 86–116; BP diastolic 52–85
[2017-03-09 06:12] LABS: ALKALINE PHOSPHATASE 63 IU/L (3-129); ANION GAP 7 MEQ/L (2-14); CHLORIDE 104 MEQ/L (99-109); GFR ESTIMATE (CALCULATED) > 59 mL/min/; GLUCOSE 90 mg/dL (70-99); POTASSIUM 3.3 MEQ/L (3.7-5.4); SAMPLE HEMOLYSIS CHECK 0; SAMPLE ICTERIC CHECK 0; SAMPLE LIPEMIA CHECK 0; SODIUM 146 MEQ/L (136-147); TOTAL BILIRUBIN 0.6 MG/DL (0.0-1.0); UREA NITROGEN (BUN) 8 mg/dL (9-23)
[2017-03-09] MEDS ORDERED: ADVAIR 500/501 DISK IH (15:47)
[2017-03-10] VITALS: BP 125/94
[2017-03-10 04:00] VITALS: BP 114/82
[2017-03-10 04:46] LABS: EOSINOPHIL (%) 0 % (0-5); IMMATURE GRANULOCYTE (%) 1.8 % (0.0-0.7); IMMATURE GRANULOCYTE COUNT 0.2 K/uL; INSTRUMENT ABS NEUTROPHIL CT 10.6 K/uL; LYMPHOCYTE COUNT 1.6 K/uL (1.0-2.8); MCH 29.7 PG (29.0-34.0); MCHC 30.7 G/DL (30.0-36.0); MCV 96.8 FL (86-99); MEAN PLAT.VOLUME 9.8 uM^3 (9.0-12.4); MONOCYTE (%) 9.1 % (3-12); MONOCYTE COUNT 1.2 K/uL (0-0.8); NEUTROPHIL (%) 77.6 % (45-76); NEUTROPHIL COUNT 10.6 K/uL (1.8-6.4); PLATELET COUNT 222 K/uL (156-360); RBC DIS.WIDTH-CV 15.1 % (11.8-14.6); RBC DIS.WIDTH-SD 53.1 % (39-53); RED BLOOD COUNT 2.79 M/uL (4.00-5.50); WHITE BLOOD COUNT 13.6 K/uL (4.1-10.2)
[2017-03-10 04:56] LABS: CHLORIDE 106 mEq/L (99-109); POTASSIUM 3.4 mEq/L (3.7-5.4); SODIUM 146 mEq/L (136-147)
[2017-03-10 04:58] LABS: GLUCOSE 89 mg/dL (70-99)
[2017-03-10 05:00] LABS: ANION GAP 11 MEQ/L (2-14)
[2017-03-10 05:01] LABS: TOTAL BILIRUBIN 0.8 mg/dL (0.0-1.0)
[2017-03-10 05:02] LABS: ALKALINE PHOSPHATASE 56 IU/L (3-129); GFR ESTIMATE (CALCULATED) > 59 mL/min/
[2017-03-10 05:03] LABS: UREA NITROGEN (BUN) 9 mg/dL (9-23)
[2017-03-10 08:00] VITALS: BP 114/88
[2017-03-10 12:48] LABS: BASE EXCESS 10.7 mEq/L (-3 to +3); BICARBONATE 34.2 mEq/L (22-26); CARBOXY HGB 1.8 % (0-5); COMMENTS - BLOOD GASES C+; DEVICE HFNC; METHEMOGLOBIN 1.5 % (0-1.5); O2 FLOW 10 L/MIN; PCO2 40 mm Hg (35-45); PO2 73 mm Hg (80-100); SITE RR; TOTAL RESP RATE 22 resp/min; pH 7.54 (7.35-7.45)
[2017-03-10 13:00] VITALS: BP 103/72
[2017-03-10 18:00] VITALS: BP 130/95
[2017-03-10 20:00] VITALS: BP 116/85
[2017-03-11] VITALS (9 sets, daily range): BP systolic 97–138; BP diastolic 73–94
[2017-03-11 14:46] LABS: ANION GAP 12 MEQ/L (2-14); CHLORIDE 103 MEQ/L (99-109); GFR ESTIMATE (CALCULATED) > 59 mL/min/; POTASSIUM 3.3 MEQ/L (3.7-5.4); SAMPLE HEMOLYSIS CHECK 0; SAMPLE ICTERIC CHECK 0; SAMPLE LIPEMIA CHECK 0; SODIUM 146 MEQ/L (136-147); UREA NITROGEN (BUN) 8 mg/dL (9-23)
[2017-03-11 14:47] LABS: GLUCOSE 118 mg/dL (70-99)
[2017-03-12] VITALS: BP 129/86
[2017-03-12 04:00] VITALS: BP 137/103
[2017-03-12 05:19] LABS: EOSINOPHIL (%) 0 % (0-5); HEMATOCRIT 29.5 % (38.0-50.0); IMMATURE GRANULOCYTE COUNT 0.1 K/uL; INSTRUMENT ABS NEUTROPHIL CT 12.2 K/uL; LYMPHOCYTE COUNT 0.6 K/uL (1.0-2.8); MCH 29.7 PG (29.0-34.0); MCHC 30.5 G/DL (30.0-36.0); MCV 97.4 FL (86-99); MEAN PLAT.VOLUME 10.1 uM^3 (9.0-12.4); MONOCYTE (%) 4.4 % (3-12); MONOCYTE COUNT 0.6 K/uL (0-0.8); NEUTROPHIL (%) 90.1 % (45-76); NEUTROPHIL COUNT 12.2 K/uL (1.8-6.4); PLATELET COUNT 214 K/uL (156-360); RBC DIS.WIDTH-CV 15.1 % (11.8-14.6); RBC DIS.WIDTH-SD 53.5 % (39-53); RED BLOOD COUNT 3.03 M/uL (4.00-5.50); WHITE BLOOD COUNT 13.6 K/uL (4.1-10.2)
[2017-03-12 06:30] LABS: DIGOXIN 0.7 ng/mL (0.8-2.0)
[2017-03-12 08:00] VITALS: BP 128/94
[2017-03-12 09:07] LABS: ANION GAP 13 MEQ/L (2-14); CHLORIDE 104 MEQ/L (99-109); GFR ESTIMATE (CALCULATED) > 59 mL/min/; GLUCOSE 103 mg/dL (70-99); POTASSIUM 3.1 MEQ/L (3.7-5.4); SAMPLE HEMOLYSIS CHECK 0; SAMPLE ICTERIC CHECK 0; SAMPLE LIPEMIA CHECK 0; SODIUM 146 MEQ/L (136-147); UREA NITROGEN (BUN) 11 mg/dL (9-23)
[2017-03-12 11:08] LABS: ANION GAP 15 MEQ/L (2-14); CHLORIDE 101 MEQ/L (99-109); GFR ESTIMATE (CALCULATED) > 59 mL/min/; GLUCOSE 117 mg/dL (70-99); POTASSIUM 3.3 MEQ/L (3.7-5.4); SAMPLE HEMOLYSIS CHECK 0; SAMPLE ICTERIC CHECK 0; SAMPLE LIPEMIA CHECK 0; SODIUM 145 MEQ/L (136-147); UREA NITROGEN (BUN) 10 mg/dL (9-23)
[2017-03-12 12:00] VITALS: BP 90/64
[2017-03-12 17:45] VITALS: BP 123/82
[2017-03-12 20:00] VITALS: BP 114/77
[2017-03-13] VITALS: BP 128/86
[2017-03-13 04:00] VITALS: BP 126/84
[2017-03-13 05:56] LABS: EOSINOPHIL (%) 0 % (0-5); HEMATOCRIT 28.5 % (38.0-50.0); IMMATURE GRANULOCYTE (%) 0.8 % (0.0-0.7); IMMATURE GRANULOCYTE COUNT 0.1 K/uL; INSTRUMENT ABS NEUTROPHIL CT 15.3 K/uL; LYMPHOCYTE COUNT 0.8 K/uL (1.0-2.8); MCH 30.8 PG (29.0-34.0); MCHC 31.6 G/DL (30.0-36.0); MCV 97.6 FL (86-99); MEAN PLAT.VOLUME 10.4 uM^3 (9.0-12.4); MONOCYTE (%) 4.4 % (3-12); MONOCYTE COUNT 0.8 K/uL (0-0.8); NEUTROPHIL (%) 90.3 % (45-76); NEUTROPHIL COUNT 15.3 K/uL (1.8-6.4); PLATELET COUNT 199 K/uL (156-360); RBC DIS.WIDTH-CV 15.2 % (11.8-14.6); RBC DIS.WIDTH-SD 54.2 % (39-53); RED BLOOD COUNT 2.92 M/uL (4.00-5.50); WHITE BLOOD COUNT 16.9 K/uL (4.1-10.2)
[2017-03-13 06:24] LABS: ANION GAP 10 MEQ/L (2-14); CHLORIDE 107 MEQ/L (99-109); GFR ESTIMATE (CALCULATED) > 59 mL/min/; GLUCOSE 143 mg/dL (70-99); POTASSIUM 3.7 MEQ/L (3.7-5.4); SAMPLE HEMOLYSIS CHECK 0; SAMPLE ICTERIC CHECK 0; SAMPLE LIPEMIA CHECK 0; SODIUM 145 MEQ/L (136-147); UREA NITROGEN (BUN) 13 mg/dL (9-23)
[2017-03-13 08:00] VITALS: BP 141/99
[2017-03-13 12:30] VITALS: BP 113/78
[2017-03-13 15:57] VITALS: BP 155/90
[2017-03-13 20:58] VITALS: BP 134/85
[2017-03-14 07:55] VITALS: BP 142/96
[2017-03-14 16:04] VITALS: BP 143/94
[2017-03-14 16:55] LABS: BASE EXCESS 8.5 mEq/L (-3 to +3); BICARBONATE 31.8 mEq/L (22-26); CARBOXY HGB 1.9 % (0-5); COMMENTS - BLOOD GASES A+C+; DEVICE HFNC; METHEMOGLOBIN 1.7 % (0-1.5); O2 FLOW 8 L/MIN; PCO2 38 mm Hg (35-45); PO2 74 mm Hg (80-100); SITE RR; pH 7.53 (7.35-7.45)
[2017-03-14 19:11] VITALS: BP 131/89
[2017-03-14 22:57] VITALS: BP 128/82
[2017-03-15 02:59] VITALS: BP 136/86
[2017-03-15 07:49] VITALS: BP 115/87
[2017-03-15 11:49] VITALS: BP 112/81
[2017-03-15 16:48] VITALS: BP 109/68
[2017-03-15 20:17] VITALS: BP 121/72
[2017-03-16 00:29] VITALS: BP 120/72
[2017-03-16 05:31] VITALS: BP 131/88
[2017-03-16 15:37] VITALS: BP 141/65
[2017-03-16 20:10] VITALS: BP 112/76
[2017-03-16 22:09] VITALS: BP 112/76
[2017-03-17 00:38] VITALS: BP 110/79
[2017-03-17 04:31] VITALS: BP 106/71
[2017-03-17 06:26] LABS: EOSINOPHIL (%) 0.2 % (0-5); HEMATOCRIT 31.6 % (38.0-50.0); IMMATURE GRANULOCYTE (%) 1.1 % (0.0-0.7); IMMATURE GRANULOCYTE COUNT 0.2 K/uL; LYMPHOCYTE COUNT 0.9 K/uL (1.0-2.8); MCH 31.1 PG (29.0-34.0); MCHC 32.3 G/DL (30.0-36.0); MCV 96.3 FL (86-99); MEAN PLAT.VOLUME 10.5 uM^3 (9.0-12.4); MONOCYTE (%) 5.1 % (3-12); MONOCYTE COUNT 0.8 K/uL (0-0.8); NEUTROPHIL (%) 87.7 % (45-76); PLATELET COUNT 152 K/uL (156-360); RBC DIS.WIDTH-CV 14.7 % (11.8-14.6); RBC DIS.WIDTH-SD 51.7 % (39-53); RED BLOOD COUNT 3.28 M/uL (4.00-5.50); WHITE BLOOD COUNT 14.8 K/uL (4.1-10.2)
[2017-03-17 06:50] LABS: ANION GAP 8 MEQ/L (2-14); CHLORIDE 100 MEQ/L (99-109); GFR ESTIMATE (CALCULATED) > 59 mL/min/; GLUCOSE 88 mg/dL (70-99); POTASSIUM 3.1 MEQ/L (3.7-5.4); SAMPLE HEMOLYSIS CHECK 0; SAMPLE ICTERIC CHECK 0; SAMPLE LIPEMIA CHECK 0; SODIUM 138 MEQ/L (136-147); UREA NITROGEN (BUN) 17 mg/dL (9-23)
[2017-03-17 08:02] VITALS: BP 136/89
[2017-03-17 11:28] VITALS: BP 107/75
[2017-03-17] MEDS ORDERED: DUONEB 2.5-0.5 M3 ML AEROSOL (11:45)
[2017-03-17] MEDS ORDERED: DIGOXIN250 MCG PO (11:45)
[2017-03-17] MEDS ORDERED: CARDIZEM CD,CA240 MG PO (11:46)
[2017-03-17] MEDS ORDERED: LOPRESSOR25 MG PO (11:46)
[2017-03-17] MEDS ORDERED: FOLIC ACID1 MG PO (11:48)
[2017-03-17] MEDS ORDERED: Thiamine,Vitamin B1 PO (11:48)
[2017-03-17] MEDS ORDERED: FLORASTOR250 MG PO (11:48)
[2017-03-17] MEDS ORDERED: PREDNISONE10 MG PO (11:49)
[2017-03-17] MEDS ORDERED: CEFTIN500 MG PO (11:50)
[2017-03-17] MEDS ORDERED: THERA-D2000 UNIT PO (11:50)
[2017-03-17 16:56] VITALS: BP 116/77
== END 2017-03-17 16:54 | DRG 207 ==
LOC: EME 21:34 → 4WEST 02-28 01:34 → EDOF 02-28 01:34 → ENRESERV 02-28 01:35 → 4WEST 02-28 04:20 → ENRESERV 03-08 09:42 → CANRESERV 03-08 22:48 → 4WEST 03-08 23:49 → ENRESERV 03-13 06:07 → 5EAST 03-13 12:03
PROVIDERS: Emergency Medicine; Internal Medicine; Internal Medicine Cardiovascular Disease; Internal Medicine Critical Care Medicine; Internal Medicine Pulmonary Disease; Obstetrics & Gynecology; Specialist
DX: J44.0 Chronic obstructive pulmonary disease with (acute) lower respiratory infection (principal); J15.9 Unspecified bacterial pneumonia; J96.21 Acute and chronic respiratory failure with hypoxia; I50.31 Acute diastolic (congestive) heart failure; E87.1 Hypo-osmolality and hyponatremia; E87.2 Acidosis; K56.7 Ileus, unspecified; J98.11 Atelectasis; E87.4 Mixed disorder of acid-base balance; J44.1 Chronic obstructive pulmonary disease with (acute) exacerbation; I48.2 Chronic atrial fibrillation; I48.0 Paroxysmal atrial fibrillation; E78.5 Hyperlipidemia, unspecified; G89.29 Other chronic pain; E83.51 Hypocalcemia; E87.6 Hypokalemia; F10.20 Alcohol dependence, uncomplicated; F17.210 Nicotine dependence, cigarettes, uncomplicated; I11.0 Hypertensive heart disease with heart failure; I25.10 Atherosclerotic heart disease of native coronary artery without angina pectoris; Z95.5 Presence of coronary angioplasty implant and graft; Z91.81 History of falling; Z86.73 Personal history of transient ischemic attack (TIA), and cerebral infarction without residual deficits; Z99.81 Dependence on supplemental oxygen; Z79.01 Long term (current) use of anticoagulants; Z79.02 Long term (current) use of antithrombotics/antiplatelets; D64.9 Anemia, unspecified; I25.2 Old myocardial infarction; K21.9 Gastro-esophageal reflux disease without esophagitis; F41.9 Anxiety disorder, unspecified; I73.9 Peripheral vascular disease, unspecified; Z88.6 Allergy status to analgesic agent; S60.222A Contusion of left hand, initial encounter; W19.XXXA Unspecified fall, initial encounter; Y92.009 Unspecified place in unspecified non-institutional (private) residence as the place of occurrence of the external cause; Y90.9 Presence of alcohol in blood, level not specified
CPT/HCPCS: 36600; 71010; 71275; 74000; 74177; 74230; 80048; 80048 91; 80053; 80162; 80200; 81003; 82140; 82330; 82550; 82553; 82803; 83605; 83735; 83880; 84100; 84484; 85025; 85610; 85730; 86850; 86900; 86901; 87040; 87070; 87077; 87086; 87185; 87186; 87205; 87493; 87641; 90686; 92526 GN; 92610 GN; 92611 GN; 93005; 93306; 94002; 94003; 94010; 94640; 94640 76; 94667; 94668; 94760; 94799; 97530 GO; 97530 GP; 99202; 99281; 99285; A6212; C1751; J0456; J0610; J0692; J0696; J1160; J1630; J1644; J1720; J1940; J1956; J2250; J2405; J2543; J2930; J3260; J3370; J3411; J3475; J3480; J7030; J7050; J7120; J7512; J7644; P9047; S0028